=== PATIENT | female | born 1980 | race Caucasian/White ===

== ENCOUNTER 2019-03-28 20:06 | Emergency (ER) | payer MEDICAID, OTHER ==
[~2019-03-28] VITALS: Ht 165.1 cm; Wt 77.1 kg
[2019-03-28 20:11] VITALS: Ht 165.1 cm; Wt 77.1 kg
[2019-03-28] MEDS ORDERED: PIPER-TAZO 3.375 GM IV (PMX) 100 ML IVPB STA (20:28)
[2019-03-28] MEDS ORDERED: morphine 4 MG/ML VIAL IV STA (20:28)
[2019-03-28] MEDS ORDERED: ONDANSETRON 4 MG INJ IV STA (20:28)
[2019-03-28] MEDS ORDERED: SODIUM CHLORIDE 0.9% 1L BAG IV* STA (20:28)
[2019-03-28] MEDS ORDERED: KETOROLAC 15 MG INJ IV STA (20:28)
[2019-03-28] MEDS ORDERED: ACETAMINOPHEN 325 MG TAB PO STA (20:28)
[2019-03-28] MEDS ORDERED: HYDROmorphONE 1 MG/ML SYG IV ONE (21:53)
[2019-03-28] MEDS ORDERED: ONDANSETRON 4 MG INJ IV ONE (21:53)
--- NOTE | 2019-03-28 22:27 | ERD ---
ER Documentation Chief Complaint Chief Complaint flank pain, chills, shivering started this AM HPI This is a very pleasant 39-year-old female presents with bilateral flank pain, chills and possible right upper quadrant abdominal pain that started this morning. Patient noted to have a fever and tachycardia triage. She denies any chest pain or shortness of breath, no pleuritic pain. The pain is noted to be 8 out of 10 currently. No diarrhea illness, mild nausea but no significant vomiting. ROS All systems reviewed and are negative except as per history of present illness. Allergies Allergies: Coded Allergies: No Known Allergy (Unverified , 03/28/19) PMhx/Soc Medical and Surgical Hx: pt denies Medical Hx, pt denies Surgical Hx Hx Alcohol Use: No Hx Substance Use: No Hx Tobacco Use: No Smoking Status: Never smoker FmHx Family History: No diabetes Physical Exam Vitals Vital Signs Date Temp Pulse Resp B/P (MAP) Pulse Ox O2 O2 Flow FiO2 Time Delivery Rate 03/28/19 98.8 88 17 104/66 99 Room Air 23:01 (79) 03/28/19 Nasal 20:33 Cannula 03/28/19 101.6 20 130/81 98 Room Air 20:33 (97) 03/28/19 101.6 108 20 126/71 98 20:11 (89) Physical Exam General: Well developed, well nourished, no acute distress Head: Normocephalic, atraumatic. Eyes: Pupils equally reactive, EOM intact ENT: Moist mucous membranes Neck: Supple, no lymphadenopathy Respiratory: Lungs clear bilaterally, no distress Cardiovascular: Tachycardia, no murmurs, rubs, or gallops Abdominal: Soft, patient has positive Joy sign with tenderness of the right upper quadrant. No pulsatile mass, no tenderness to the right lower quadrant, no CVAT bilaterally : Deferred MSK: No edema, no unilateral swelling, 5/5 strength Neurologic: Alert and oriented, moving all extremities, normal speech, no focal weakness, no cerebellar signs Skin: No rash Psych: Normal mood Result Diagram: 03/28/19203303/28/192033 Results 24 hrs Laboratory Tests Test 03/28/19 20:34 03/28/19 20:37 03/28/19 20:44 03/28/19 21:12 White Blood Count 12.8 10^3/ul Red Blood Count 4.94 10^6/ul Hemoglobin 14.6 g/dl Hematocrit 44.1 % Mean Corpuscular 89.3 fl Volume Mean Corpuscular 29.6 pg Hemoglobin Mean Corpuscular 33.1 g/dl Hemoglobin Concen t Red Cell 11.7 % Distribution Width Platelet Count 271 10^3/UL Mean Platelet 9.0 fl Volume Immature 0.400 % Granulocytes % Neutrophils % 84.8 % Lymphocytes % 8.6 % Monocytes % 6.0 % Eosinophils % 0.0 % Basophils % 0.2 % Nucleated Red 0.0 /100WBC Blood Cells % Immature 0.050 10^3/ul Granulocytes # Neutrophils # 10.9 10^3/ul Lymphocytes # 1.1 10^3/ul Monocytes # 0.8 10^3/ul Eosinophils # 0.0 10^3/ul Basophils # 0.0 10^3/ul Nucleated Red 0.0 10^3/ul Blood Cells # Prothrombin Time 13.0 Sec Prothrombin Time 1.0 Ratio INR International 0.97 Normalized Ratio Activated 28.4 Sec Partial Thrombopl ast Time Sodium Level 137 mmol/L Potassium Level 3.7 mmol/L Chloride Level 103 mmol/L Carbon Dioxide 24 mmol/L Level Anion Gap 10 Blood Urea 10 mg/dl Nitrogen Creatinine 0.71 mg/dl Est Glomerular > 60 mL/min Filtrat Rate mL/min Glucose Level 112 mg/dl Calcium Level 10.0 mg/dl Total Bilirubin 1.4 mg/dl Direct Bilirubin 0.00 mg/dl Indirect 1.4 mg/dl Bilirubin Aspartate Amino 23 IU/L Transf (AST/SGOT) Alanine 23 IU/L Aminotransferase (ALT/SGPT) Alkaline 72 IU/L Phosphatase Total Protein 8.0 g/dl Albumin 4.7 g/dl Globulin 3.30 g/dl Albumin/Globulin 1.42 Ratio Lipase 184 U/L POC Venous 1.1 mmol/L Lactate POC Beta HCG, NEGATIVE Qualitative Urine Color YELLOW Urine Clarity CLOUDY Urine pH 7.0 Urine Specific 1.027 [place] Urine Ketones 2+ mg/dL Urine Nitrite NEGATIVE mg/dL Urine Bilirubin NEGATIVE mg/dL Urine NEGATIVE mg/dL Urobilinogen Urine Leukocyte NEGATIVE [place]/ul Esterase Urine Microscopic 4 /HPF RBC Urine Microscopic 2 /HPF WBC Urine Squamous FEW /HPF Epithelial Cells Urine Bacteria FEW /HPF Urine Mucus MANY /HPF Urine Hemoglobin 1+ mg/dL Urine Glucose NEGATIVE mg/dL Urine Total NEGATIVE mg/dl Protein Current Medications Medications Dose Sig/Sharon Start Time Status Last (Trade) Ordered Route PRN Stop Time Admin Dose Reason Admin Sodium 2,310 ml BOLUS OVER 2 03/28/19 DC 03/28/19 Chloride HOURS STAT 20:28 20:53 (NS) IV* 03/28/19 20:30 650 mg ONCE STAT 03/28/19 DC 03/28/19 Acetaminophen PO 20:28 20:53 (Tylenol 03/28/19 20:30 Tab) Morphine 4 mg ONCE STAT 03/28/19 DC 03/28/19 Sulfate IV 20:28 20:52 (morphine) 03/28/19 20:30 Ondansetron 4 mg ONCE STAT 03/28/19 DC 03/28/19 HCl (Zofran IV 20:28 20:52 Inj) 03/28/19 20:30 Piperacillin 100 ml @ ONCE STAT 03/28/19 DC 03/28/19 Sod/ 200 mls/hr IVPB 20:28 20:53 Tazobactam 03/28/19 20:57 Sod Ketorolac 15 mg ONCE STAT 03/28/19 DC 03/28/19 Tromethamine IV 20:28 20:52 (Toradol) 03/28/19 20:30 1 mg ONCE ONCE 03/28/19 DC 03/28/19 Hydromorphone IV 21:53 21:58 HCl 03/28/19 21:54 (Dilaudid) Ondansetron 4 mg ONCE ONCE 03/28/19 DC 03/28/19 HCl (Zofran IV 21:53 21:58 Inj) 03/28/19 21:54 Procedures/MDM EKG, MONITORS, & DIAGNOSTIC IMAGING: Gallbladder ultrasound: Unremarkable per radiologist read CT abdomen and pelvis: IMPRESSION: 1. There is a 3 mm right lower pole renal calculus without evidence for hydronephrosis or additional urinary tract calculi. 2. Mild uterine enlargement, leiomyomatous changes difficult to exclude with an intrauterine device in the endometrial cavity. 3. Small fat-containing umbilical hernia. 4. The remainder of the examination is unremarkable. LAB INTERPRETATION: I reviewed the laboratory testing and it shows mild wbc of 12 MEDICAL DECISION MAKING: Presentation is possible c/w acute cholecystitis. Code sepsis initiated. Patient quite tender in RUQ. Lower concern for PNA or acute appendicitis based on exam. Does have back component. Consider ureteral colic but bilateral back pain noted. CT if neg workup and still having pain. ER COURSE: * The patient received IV fluids and pain medication. Ultrasound imaging was unremarkable. Laboratory testing shows no evidence of hepatobiliary obstruction. Given the patient's persistence of pain CT imaging of the abdomen pelvis is been ordered. * Patient was given second dose of pain medication and is now completely improved. Repeat abdominal exam reveals only very subtle tenderness the right upper quadrant but negative Joy sign. * At this time I do not have a clear etiology as to the patient's fever and symptoms. The patient does have a renal stone but I am not convinced this is causing her pain. No signs or symptoms concerning for infected stone, no tricia dence of urinary tract infection. No clear reason that the patient would benefit from antibiotics. * Consider possible viral process. We discussed discharge with expectant management of symptom control and strict return precautions. The patient feels comfortable with the plan. CONSULTATION: None DISPOSITION PLAN: The patient does not have an identifiable emergent medical condition that warrants inpatient hospitalization at this time. The patient is deemed safe for discharge with outpatient follow-up. We discussed follow up with the patient's primary care doctor within 24 to 48 hours as needed. We also discussed return to the emergency room for worsening symptoms or worsening condition. Outpatient referral: None required Discharge Medications: Motrin Valdez Diagnosis: Primary Impression: Flank pain Additional Impression: Right upper quadrant abdominal pain Condition: Stable CJ GREER MD March 28, 2019 22:27
[2019-03-28] MEDS ORDERED: IBUP800T48 PO (23:19)
[2019-03-28 23:57] VITALS: BP 110/77; PULSE 89; RESP 18
== END 2019-03-28 23:58 | disposition home or self-care (01) ==
LOC: E/R 20:06
DX: R10.11 Right upper quadrant pain (principal)
CPT/HCPCS: 36415; 74176; 76705; 80053; 81001; 81025; 83605; 83690; 85025; 85610; 85730; 87040; 87086; 96374; 96375; 96376; 99285; J1170; J1885; J2270; J2405; J2543; J7030